=== PATIENT | female | born 1985 | race Caucasian/White ===

== ENCOUNTER 2019-02-10 09:18 | Emergency (ER) | payer OTHER, MEDICAID ==
[~2019-02-10] VITALS: Ht 170.2 cm; Wt 71.0 kg
[2019-02-10] MEDS ORDERED: SODIUM CHLORIDE 0.9% 1,000 ML IV ONE (10:34)
[2019-02-10] MEDS ORDERED: KETOROLAC 30MG/ML VIAL IV STA (10:34)
[2019-02-10 11:17] LABS: BASOPHILS % 0.6 % (0.0-2.0); EOSINOPHILS % 4.1 % (0.0-5.0); HEMATOCRIT. 42.8 % (36.0-48.0); HEMOGLOBIN. 14.4 g/dL (12.0-16.0); LYMPHOCYTES % 18.2 % (20.0-50.0); MEAN CORPUSCULAR HEMOGLOBIN 30.3 pg (28.0-32.0); MEAN CORPUSCULAR VOLUME 89.9 fL (81.0-99.0); MEAN PLATELET VOLUME 8.8 fl (7.4-10.4); MONOCYTES % 6.5 % (2.0-8.0); NEUTROPHILS % 70.6 % (40.0-76.0); PLATELET 224 x1000/uL (130-400); RED BLOOD CELL COUNT 4.76 mill/uL (4.2-5.4); RED CELL DISTRIBUTION WIDTH 13.4 % (11.6-14.6)
[2019-02-10 11:23] LABS: CHLORIDE 109 mEq/L (98-107)
[2019-02-10 11:44] LABS: HCG SCREEN NEGATIVE
[2019-02-10] MEDS ORDERED: HYDROCODONE/ACETAMINOPHEN 5/325MG TABLET PO ONE (12:45)
[2019-02-10 13:47] VITALS: BP 100/63
== END 2019-02-10 13:50 | disposition home or self-care (01) ==
LOC: ER 09:54
DX: S13.4XXA Sprain of ligaments of cervical spine, initial encounter (principal); R55 Syncope and collapse; V49.9XXA Car occupant (driver) (passenger) injured in unspecified traffic accident, initial encounter; Y93.89 Activity, other specified; Y92.89 Other specified places as the place of occurrence of the external cause; Y99.8 Other external cause status
CPT/HCPCS: 36415; 72125; 80053; 81025; 84484; 84703; 85025; 93005; 96361; 96374; 99284; J1885; J7030